=== PATIENT | female | born 1965 | race Caucasian/White ===

== ENCOUNTER 2023-11-21 12:34 | Emergency (ER) | payer OTHER, SELFPAY ==
[2023-11-21 12:38] VITALS: BP 180/101
--- NOTE | 2023-11-21 13:22 | ED.GENMED ---
History of Present Illness
General
Chief Complaint: Back Pain
Source: patient
Exam Limitations: none
Time Seen by Provider: 11/21/23 12:57
Nursing documentation reviewed up to this point in time: agreed with
History of Present Illness
History of Present Illness:
58-year-old female history of gastric sleeve presenting to the emergency department today with concerns of low back discomfort and spasm after reaching down to her toes and feeling a sharp pain to her back. Denies any numbness weakness change in
bowel or bladder function.
Review of Systems
Review of Systems
Allergies reviewed?: Yes
All Other Systems: ROS reviewed and negative except as documented in HPI and ROS
Phy Exam
Physical Exam
Physical Exam:
GENERAL: Alert , in no apparent distress
EYE: pupils equal and reactive
NECK: Supple, no significant adenopathy.
ENT: o/p clr, mmm.
CARDIAC: Regular rate and rhythm .
LUNGS: Clear breath sounds bilaterally, no acute respiratory distress, no wheezes/rales/rhonchi
ABDOMEN: Soft, without focal tenderness, no r/g, no cvat
NEUROLOGICAL: Alert and oriented, no focal neuro deficits
SKIN: Warm and dry, skin intact.
MUSCULOSKELETAL: No edema, well perfused.
PSYCH: Normal and appropriate interaction.
Course
Orders/Labs/Results
Orders:
Orders
11/21/23 13:10
Diazepam [Valium] 5 mg PO NOW STA
11/21/23 14:17
Dexamethasone [Decadron] 10 mg PO NOW STA
Diazepam [Valium] 5 mg PO NOW STA
Lumbar Spine, 2 or 3 View [CR Lumbar Spine 2 Or 3 Views] Urgent
Comment:
Reason For Exam: low back pain
11/21/23 16:01
Oxycodone [Roxicodone] 5 mg PO NOW STA
Vital Signs
Initial and Last Documented VS:
Initial Vital Signs
Temp Pulse Resp BP Pulse Ox
97.6 F 90 16 180/101 97
11/21/23 12:38 11/21/23 12:38 11/21/23 12:38 11/21/23 12:38 11/21/23 12:38
Last Documented Vital Signs
Temp Pulse Resp BP Pulse Ox
97.6 F 88 16 132/52 97
11/21/23 12:38 11/21/23 16:11 11/21/23 16:11 11/21/23 16:11 11/21/23 16:11
MDM/Problems Addressed
MDM/Problems Addressed:
58-year-old female presenting to the emergency department today with concerns of low back pain after reaching downward feeling a pulling sensation to her low back. She has noticed ongoing muscle spasm since over the past few hours. She took
Tylenol at home without relief. Here she denies any change in bowel or bladder function no numbness or weakness. Ambulating well. Patient given dose of Valium for muscle laxation. Patient with improvement of symptoms stable for discharge return
precautions given.
*Critical Care Note
Total Time (30-74mins, 75-104mins- exclusive of procedures): Not Applicable
ED Attending Note
-
Portions of this chart may have been created with voice recognition software.� Occasional wrong word or��sound alike� substitutions may have occurred due to the inherent limitations of voice recognition software.
Discharge Plan
Departure
Patient Disposition: Home (Routine Discharge)
Date of Disposition: 11/21/23
Time of Disposition: 16:02
Patient with high blood pressure during this ER visit?: Yes
Condition: Good
Covid-19: Not Applicable
Discharge Problem:
Low back pain
Instructions: Low Back Pain (DC), BLOOD PRESSURE
Prescriptions:
New
prednisone 20 mg tablet
40 mg PO DAILY 3 Days Qty: 6 0RF
tizanidine [Zanaflex] 4 mg capsule
4 mg PO HS PRN (Reason: muscle spasticity) Qty: 7 0RF
Referrals:
Wilian Zhang MD [Active] - Follow up in 5-7 days
Maliha Schofield CRNP [Family Provider] -
Activity Restrictions/Additional Instructions:
You came to the emergency department today with concerns of back discomfort. Here you are given medications help with symptoms and also had a normal x-ray without signs of acute injury. Please follow-up closely with the back doctor or your primary
care doctor. Return to the emergency department for any worsening, new or concerning symptoms.
Interventions
Interventions:
*Risk Screen - Suicide Last Done: 11/21/23 13:31
*General Assessment Last Done: 11/21/23 12:38
*Neglect/Abuse Screening Last Done: 11/21/23 12:38
ED- Fall Risk Assessment Last Done: 11/21/23 16:11
*ED COVID-19 Vaccine History Last Done: 11/21/23 12:38
*Nursing Disposition Last Done: 11/21/23 16:11
ED-Musculoskeletal Assessment Last Done: 11/21/23 13:31
Discharge Date and Time
Discharge Date/Time: 11/21/23 16:12
Print Language: FRENCH
[2023-11-21] MEDS: VALIUM 5 MG PO ×2 (13:24→14:25)
[2023-11-21] MEDS: DECADRON 10 MG PO (14:25)
[2023-11-21] MEDS: ROXICODONE 5 MG PO (16:07)
[2023-11-21 16:11] VITALS: BP 132/52
== END 2023-11-21 16:12 | disposition home or self-care (01) ==
LOC: EMR 12:34
PROVIDERS: EMERGENCY PHYSICIAN Emergency Medicine; FAMILY PHYSICIAN Nurse Practitioner
DX: M54.50 Low back pain, unspecified (principal)
CPT/HCPCS: 99283; 72100

== ENCOUNTER → 2023-12-27 10:18 | Outpatient (REF) | payer OTHER, SELFPAY | LOC: HWRAD 10:18 | PROVIDERS: ATTENDING PHYSICIAN Anesthesiology Pain Medicine; FAMILY PHYSICIAN Nurse Practitioner | DX: M25.551 Pain in right hip (principal) | CPT/HCPCS: 73502 ==

== ENCOUNTER → 2024-04-30 11:12 | Outpatient (REF) | payer OTHER, SELFPAY | LOC: HWRAD 11:12 | PROVIDERS: ATTENDING PHYSICIAN Hospitalist; REFERRING PHYSICIAN Anesthesiology Pain Medicine | DX: M06.9 Rheumatoid arthritis, unspecified (principal) | CPT/HCPCS: 73120; 73560; 73565 ==

== ENCOUNTER 2024-09-03 10:59 | Inpatient (IN) | payer OTHER, SELFPAY ==
[2024-09-02 23:08] VITALS: BMI 43.1
[2024-09-02 23:21] VITALS: BP 170/94
[2024-09-02] MEDS: ZOFRAN 4 MG IV ×2 (23:38→23:51)
[2024-09-02] MEDS: NSS 1000 IV (23:45)
[2024-09-02] MEDS: DILAUDID 1 MG IV (23:48)
--- NOTE | 2024-09-02 23:49 | ED.GENMED ---
History of Present Illness
General
Chief Complaint: Abdominal Pain
Source: patient and family
Exam Limitations: none
Time Seen by Provider: 09/02/24 23:35
Nursing documentation reviewed up to this point in time: agreed with
History of Present Illness
History of Present Illness:
59-year-old female 1 to 2 hours of nausea diarrhea right lower abdominal pain
No prior episodes of pain although she has had a gastric sleeve she is a gynecologic surgery breast surgery,
Past History
Past History
ED Past Surgical History: , Gynecological and Other (Gastric sleeve)
Social History
Tobacco: Non-smoker
Alcohol: None
Drug: None
Personal:
Living: with family
Employment: Employed
Review of Systems
Review of Systems
All Other Systems: Not applicable
Constitutional: Denies fever or fatigue
Respiratory: Denies cough or trouble breathing
Cardiac: Denies chest pain
ABD/GI: Reports abdominal pain, nausea, vomiting and diarrhea
: Denies flank pain
Neurological: Reports no symptoms
Endocrine: Reports no symptoms
Phy Exam
Physical Exam
Physical Exam:
Physical Exam
General: 59 female yelling out in pain
Neck: Dry membranes
Heart: s1/s2 regular rate and rhythm, no murmur. equal radial pulses.
Lungs: no acute respiratory distress. clear bilaterally
Abdomen: Tender in the right lower abdomen
Neuro: alert and oriented. no focal neurological deficits
Skin: no rash
Psychiatric: Anxious cooperative
Course
Orders/Labs/Results
Orders:
Orders
09/02/24 23:35
0.9% Sodium Chloride 1000 ml [Nss] 1,000 ml IV BOLUS
Ondansetron Injectable [Zofran] 4 mg IV NOW STA
09/02/24 23:36
Ondansetron Injectable [Zofran] 4 mg .ROUTE .STK-MED ONE
09/02/24 23:39
HYDROmorphone [Dilaudid] 1 mg IV NOW STA
09/02/24 23:44
Complete Blood Count/With Diff Urgent
09/02/24 23:47
Ondansetron Injectable [Zofran] 4 mg IV NOW STA
09/03/24
CT Abd/pelvis W Iv Cont Urgent
Reason For Exam: rlq pain
09/03/24 00:05
EKG [Electrocardiogram (*1)] Urgent
Reason for Study: Bradycardia / Tachycardia
EKG- Treatment ONCE
09/03/24 00:20
Comprehensive Metabolic Panel Urgent
Comment: REDRAW
Lipase Urgent
Comment: REDRAW
09/03/24 00:50
Diphenhydramine [Benadryl] 25 mg IV NOW STA
HYDROmorphone [Dilaudid] 1 mg IV NOW STA
09/03/24 02:25
Zosyn 3.375 grams IVPB NOW Piperacillin/Tazo 3.375 Gram [Zosyn] 3.375 gram in 50 ml IV NOW
Abnormal Lab Results
09/02/24 09/03/24
23:44 00:20
MCH 31.7 H pg
(27.0-31.0)
Absolute Neuts (auto) 8.4 H 10^3/uL
(1.4-6.5)
Absolute Monos (auto) 0.7 H 10^3/uL
(0.1-0.6)
Neutrophils % 79.8 H %
(42.2-75.2)
Lymphocytes % 12.3 L %
(20.5-51.1)
Chloride 109 H mmol/L
(98-107)
Glucose 147 H mg/dl
(70-99)
Calcium 10.4 H mg/dl
(8.4-10.2)
09/02/24 23:44
09/03/24 00:20
Vital Signs
Initial and Last Documented VS:
Initial Vital Signs
Temp Pulse Resp BP Pulse Ox
98.5 F 55 26 170/94 98
09/02/24 23:21 09/02/24 23:21 09/02/24 23:21 09/02/24 23:21 09/02/24 23:21
Last Documented Vital Signs
Temp Pulse Resp BP Pulse Ox
98.3 F 54 26 151/137 98
09/03/24 00:10 09/03/24 01:31 09/02/24 23:21 09/03/24 01:31 09/03/24 01:00
MDM/Problems Addressed
Differential Diagnosis Includes:
Enteritis colitis appendicitis renal colic obstruction doubt AAA
MDM/Problems Addressed:
Abdominal pain nausea vomit
Chronic conditions affecting care: Previous abdomnial surgery
Acute Exacerbation and/or Progression of Chronic Illness: Previous abdomnial surgery
*Radiology
Radiology exam reviewed: radiology read reviewed
*Pulse Oximetry
Patient hypoxic: no
*[employer] Interpretation
Rate: normal
Interpretation: normal
Heart Rate: 78
Rhythm: sinus
*Critical Care Note
Total Time (30-74mins, 75-104mins- exclusive of procedures): Not Applicable
Update Note
Update Note:
Update CT report reviewed with vision radiology positive appendicitis patient updated she was comfortable message sent to on-call general surgeon
ED Attending Note
-
Portions of this chart may have been created with voice recognition software.� Occasional wrong word or��sound alike� substitutions may have occurred due to the inherent limitations of voice recognition software.
Discharge Plan
Departure
Patient Disposition: Admit
Date of Disposition: 09/03/24
Time of Disposition: 02:25
Admit to: Med/Surg
Admit to doctor: General surgery
Presentation/result/management discussed w/ accepting MD/DO: gs
Condition: Good
Discharge Problem:
Acute appendicitis
Referrals:
NONE,* [Family Provider, Internal Medicine]
Interventions
Interventions:
*Risk Screen - Suicide Last Done: 09/02/24 23:21
*General Assessment Last Done: 09/02/24 23:57
*Neglect/Abuse Screening Last Done: 09/02/24 23:57
*ED- Fall Risk Assessment Last Done: 09/03/24 00:30
*ED COVID-19 Vaccine History Last Done: 09/02/24 23:57
GA-Cbgrcr-Gsxelfmneb Assessment Last Done: 09/03/24 00:30
Discharge Date and Time
Print Language: ICELANDIC
[2024-09-02 23:57] LABS: % Basophils 0.1 % (0-2); % Eosinophils 0.9 % (0-6); % Immature Granulocytes 0.4 % (0-0.5); % Lymphocytes 12.3 % (20.5-51.1); % Monocytes 6.5 % (1.7-9.3); % Neutrophils 79.8 % (42.2-75.2); Absolute Eosinophils 0.1 10^3/uL (0-0.7); Absolute Lymphocytes 1.3 10^3/uL (1.2-3.4); Absolute Monocytes 0.7 10^3/uL (0.1-0.6); Absolute Neutrophils 8.4 10^3/uL (1.4-6.5); Hematocrit 39.4 % (37.0-47.0); Mean Corp Hgb Conc. 35.5 g/dL (33.0-37.0); Mean Corpuscular Hgb 31.7 pg (27.0-31.0); Mean Corpuscular Volume 89.3 fL (81.0-99.0); Mean Platelet Volume 10.2 fL (7.4-10.4); Nucleated Red Blood Cells % 0 %; Platelet Count 210 10^3/uL (130-400); Red Blood Cell Count 4.41 10^6/uL (4.20-5.40); White Blood Cell Count 10.5 10^3/uL (4.8-10.8)
[2024-09-03] VITALS (17 sets, daily range): BP systolic 116–181; BP diastolic 47–137; BMI 44.4
[2024-09-03 00:48] LABS: ALT (SGPT) 22 U/L (0-35); AST (SGOT) 25 U/L (14-36); Alkaline Phosphatase 81 U/L (38-126); Blood Urea Nitrogen 16 mg/dl (7-17); Calcium 10.4 mg/dl (8.4-10.2); Carbon Dioxide 22 mmol/L (22-30); Chloride 109 mmol/L (98-107); Estimated Creatinine Clearance 118 ml/min; Glucose 147 mg/dl (70-99); Lipase 105 U/L (23-300); Potassium 4.1 mmol/L (3.5-5.1); Sodium 139 mmol/L (135-145); Total Bilirubin 1.3 mg/dl (0.2-1.3); Total Protein 7.9 g/dl (6.3-8.2); eGFR > 60.00
[2024-09-03] MEDS: BENADRYL 25 MG IV (00:54)
[2024-09-03] MEDS: DILAUDID 1 MG IV (00:55)
[2024-09-03] MEDS: ZOSYN 50 IV ×4 (02:42→19:56)
--- NOTE | 2024-09-03 03:07 | HPS.HSE ---
Addendum entered and electronically signed by Parker Sanford MD 09/03/24 08:29:
Patient seen and examined independently of admitting nurse practitioner. Agree with documented history and physical.
HPI: 59-year-old female who was in her usual baseline state of health until yesterday evening when she acutely developed abdominal pain which promptly localized to the right lower quadrant. Nausea, dry heaves but no vomiting. She has moved her
bowels a few times and a bit loose since her symptoms started. No previous episodes of pain like this in the past. Symptoms persisted this a.m. Associated anorexia as well.
Past abdominal surgical history notable for , gastric sleeve, abdominoplasty, prior umbilical hernia repair with mesh but mesh was removed at time of abdominoplasty per patient.
Medical history notable for asthma/anxiety/depression
AFVSS
Acutely ill and uncomfortable appearing. No acute distress however. Participatory for history taking. AAO x 3.
ABD: Soft, tenderness to palpation lower abdomen with voluntary guarding in the right lower quadrant
CT imaging with distended appendix and surrounding inflammatory changes. Probable fecalith. No significant free fluid. Cecum and terminal ileum unremarkable. No abscess.
Assessment/plan: 59-year-old female presenting with acute appendicitis. Reviewed with patient treatment options both operative and nonoperative with associated risk/benefits. Her preference is to proceed with appendectomy. Laparoscopic
appendectomy was reviewed in detail with the patient including the anticipated operative technique, potential operative findings and their management, benefits and potential risks such as but not limited to bleeding, infectious and wound related
complications, iatrogenic injury to surrounding viscera, conversion open. We discussed the typical postoperative recovery pending operative findings. Any of the patient's concerns or questions were fully addressed and informed consent was
confirmed.
Patient is on the OR schedule for today
N.p.o.
IV fluid hydration
Zosyn
As needed analgesics and antiemetics
SCDs/Lovenox for VTE prophylaxis
Original Note:
Family Physician
-
Family Physician: * NONE
Chief Complaint
-
Abdominal Pain
History of Present Illness
59-year-old female with a PMH of depression presents to the ER with complaints of nausea, dry heaving, diarrhea, and right lower abdominal pain 6/10 that was sharp in nature starting around 1999. She states that her last meal was around 1200. She
denies taking any medications at home to help with the pain/ nausea. She denies fevers, chills, urinary symptoms or palpations. She denies similar episodes like this before. Denies CP, SOB, or any other symptoms. Pt using PRN inhaler for seasonal
asthma.
Medical History
Past Medical History
Past Medical History: Reports Asthma (seasonal)
Past Surgical History: Reports , Gynocological and Other
Additional Past Surgical History:
L hip replacement, gastric sleeve
Social History
Tobacco: Former Smoker
Alcohol: Other (Pt drinks 2 glasses of white wine 4x a week )
Drug: None
Personal: Other
Living: Other
Employment: Other
Family History
Family History: Not pertinent
Allergies / Home Medications
Allergies reflects when Allergies were last updated in [employer].
Home Medications with original date entered in [employer]
Allergy/Medication List:
Allergies
Allergy/AdvReac Type Severity Reaction Status Date / Time
adhesive tape Allergy Rash Verified 09/02/24 23:20
Seasonal Allergy Nasal and Uncoded 09/02/24 23:20
eye
Home Medications
budesonide-formoterol HFA 160 mcg-4.5 mcg/actuation aerosol inhaler (Symbicort) 2 puff inhalation BID 09/03/24
cholecalciferol (vitamin D3) 50 mcg (2,000 unit) tablet (Vitamin D3) 50 mcg PO DAILY 09/03/24
escitalopram oxalate 20 mg tablet 20 mg PO DAILY 09/03/24
fluticasone propionate 50 mcg/actuation nasal spray,suspension 2 spray intranasal DAILY 09/03/24
naltrexone 4.5 mg capsule 4.5 mg PO 1XD 09/03/24
Review of Systems
-
History Source: Patient
A 12 point ROS was completed and negative except as noted: Yes
Abdomen/GI: Reports Abdominal Pain, Nausea and Diarrhea
Psych: Reports Anxiety
Physical Exam
Vital Signs
Vital Signs
Temp Pulse Resp BP Pulse Ox
98.3 F 52 21 155/75 92
09/03/24 00:10 09/03/24 02:15 09/03/24 02:15 09/03/24 02:00 09/03/24 02:15
Physical Exam
General: Pain
HEENT: NormoCephalic
Respiratory: Clear
Cardiac: S1/S2 and Regular Rhythm
GI: Soft and Tender
Neuro: Awake, Alert and Oriented
Psych: Anxious
Laboratory Results
-
09/02/24 23:44
09/03/24 00:20
Laboratory Results
Total Bilirubin 1.3 mg/dl (0.2-1.3) 09/03/24 00:20
AST 25 U/L (14-36) 09/03/24 00:20
ALT 22 U/L (0-35) 09/03/24 00:20
Alkaline Phosphatase 81 U/L (38-126) 09/03/24 00:20
Lipase 105 U/L (23-300) 09/03/24 00:20
Data Reviewed
-
CT Scan: Discussed with Patient
Impression/Plan
-
CT Abd/Pel w/ contrast:
Findings:
1) Acute appendicitis measuring up to 12mm, surrounding soft tissue stranding. No evidence of complications.
2) No bowel obstruction
Incidentals:
Diverticulosis w/o evidence of diverticulitis. Evidence of prior gastric surgery. Small hiatal hernia. Bibasilar atelectasis.
IMPRESSION:
Acute Appendicitis
PLAN:
Acute Appendicitis
Admit to general surgery Dr. Barber
NPO
cont. Zosyn and IVF
Pain management: Tylenol & Dilaudid
Nausea: Zofran PRN
Depression
Cont. Escitalopram oxalate
Asthma: seasonal
Cont. inhaler and Flonase
Pts med list lists Naltrexone. Pt refused to discuss med list, states it was already given to the nursing staff. PDMP checked only Tramadol listed 2x for a 7 day prescription.
Pt states she drinks 2 glasses of white wine 4x a week- denies any PMH of withdrawal- watch for s/s of withdrawal.
DVT prophylaxis: Lovenox
Full Code
[2024-09-03] MEDS: COMPAZINE 5 MG IV (04:23)
[2024-09-03] MEDS: FLUSH (NSS) 1 FLUSH IV (04:24)
[2024-09-03] MEDS: DILAUDID 0.5 MG IV ×5 (04:24→22:18)
[2024-09-03] MEDS: NSS 1000 IV ×2 (06:00→18:19)
--- NOTE | 2024-09-03 07:05 | PTCARENOTE ---
Patient received from ED via stretcher. Patient ambulated to bathroom independently. Patient drowsy from pain medication that she received in ED. Patient oriented to room safety and call sullivan. Call sullivan within reach. Will monitor.
[2024-09-03 07:12] LABS: Hematocrit 38.5 % (37.0-47.0); Mean Corp Hgb Conc. 33.8 g/dL (33.0-37.0); Mean Corpuscular Hgb 31.9 pg (27.0-31.0); Mean Corpuscular Volume 94.4 fL (81.0-99.0); Mean Platelet Volume 9.2 fL (7.4-10.4); Platelet Count 212 10^3/uL (130-400); Red Blood Cell Count 4.08 10^6/uL (4.20-5.40); Red Cell Dist. Width 13.9 % (11.5-14.5); White Blood Cell Count 12.1 10^3/uL (4.8-10.8)
[2024-09-03] MEDS: LEXAPRO 20 MG PO (07:43)
[2024-09-03] MEDS: SYMBICORT 160/4.5 MCG INHALER 2 PUFF INH ×2 (07:45→19:38)
[2024-09-03 08:01] LABS: Blood Urea Nitrogen 12 mg/dl (7-17); Calcium 9.4 mg/dl (8.4-10.2); Carbon Dioxide 26 mmol/L (22-30); Chloride 107 mmol/L (98-107); Estimated Creatinine Clearance 116 ml/min; Glucose 153 mg/dl (70-99); Potassium 4.6 mmol/L (3.5-5.1); Sodium 141 mmol/L (135-145); eGFR > 60.00
--- NOTE | 2024-09-03 08:30 | W.SUR.PREOP ---
Pre-Operative Surgical Note
-
I have examined this patient prior to the performance of the scheduled procedure.
The patient's condition is unchanged from the time of the current History and
Physical and the patient is able to undergo the scheduled procedure.
--- NOTE | 2024-09-03 11:01 | W.IMMPOSTOP ---
Addendum entered and electronically signed by Parker Sanford MD 09/03/24 11:14:
#[id number]
Original Note:
Surgical Immed Post Op Note
-
Primary Surgeon: Parker Sanford MD
Assisting Surgeon: Dayo AKBAR
Pre-op Diagnosis: Acute Appendicitis
Post-op Diagnosis: Perforated acute appendicitis without abscess; localized peritonitis
Procedure Performed: Laparoscopic appendectomy
Anesthesia Type: GETA +0.25% Marcaine
Specimen / Cultures: Appendix/none
Estimated Blood Loss: 6 mL
Complications: None immediate
Operative Findings: Walled off perforated appendicitis with gangrenous changes towards proximal appendix. Base of appendix/cecum without significant inflammatory changes/thickening. TI normal. Localized peritonitis. No abscess, no purulent
ascites.
Plan: Continue Zosyn postop and anticipate 7-day coverage of antibiotics postoperative (Augmentin on discharge)
Clear liquid diet and hold on dietary advancement until signs of GI recovery
Continue IV fluid hydration and supportive care
[2024-09-03] MEDS: TORADOL 15 MG IV (13:58)
--- NOTE | 2024-09-03 17:01 | CM ---
Alert awake oriented patient who
lives with her Enoch and dgt Eufemia in a 2 story home with 0 steps to enter and 10 steps to bed/bathroom. She is independent in activates of daily living.She does drive .Offered VN she declined need.
No VN in past . No SNF hx
Pharmacy [facility]
PCP Lillie Dawn
PLAN Home with no needs
[2024-09-03] MEDS: LOVENOX 40 MG SC (18:16)
[2024-09-03] MEDS: ANESTHETIC LOZENGE 1 LOZENGE PO (20:41)
[2024-09-04] MEDS: DILAUDID 0.5 MG IV ×3 (00:38→08:23)
[2024-09-04] MEDS: ZOSYN 50 IV ×4 (01:03→19:43)
[2024-09-04] MEDS: NSS 1000 IV ×3 (02:09→21:18)
[2024-09-04 04:45] VITALS: BP 129/57
[2024-09-04 07:15] VITALS: BP 123/62
[2024-09-04] MEDS: SYMBICORT 160/4.5 MCG INHALER 2 PUFF INH ×2 (07:55→18:16)
[2024-09-04] MEDS: TYLENOL 650 MG PO (08:15)
[2024-09-04] MEDS: LEXAPRO 20 MG PO (08:15)
--- NOTE | 2024-09-04 08:41 | W.PN.GS2 ---
Addendum entered and electronically signed by Parker Sanford MD 09/04/24 14:16:
BMI 44.4 obesity: likely secondary to excess calories
Addendum entered and electronically signed by Parker Sanford MD 09/04/24 10:13:
Patient seen and examined with surgical SOLAR SALES ASSESSOR in follow-up.
No flatus, no BM, no nausea but appetite poor
Appendicitis pain resolved, postoperative incisional pain controlled
AFVSS
ABD: Soft, tenderness palpation at incision sites, incisions with glue dressings
A/P: POD #1 status post laparoscopic appendectomy -perforated appendicitis, localized peritonitis but no abscess or purulence
Continue Zosyn
Hold on clear liquid diet until signs of postoperative GI recovery
Reduce IV fluid rate
Supportive care
Original Note:
Today's Communication / Plan
-
Clears
IV ABX
Assessment / Plan
-
59 yo female who presented with acute appendicitis now POD #1 lap appi with perforated appendicitis noted, localized peritonitis
AFVSS
Not yet passing flatus with distention concerning for developing ileus, not unexpected given intraoperative findings
No n/v
-Clears as tolerated
-IVF until good PO intake, decrease rate to 100ml/hr
-Analgesics prn, encouraged minimizing narcotics
-OOB/Ambulate
-Continue Zosyn postop and anticipate 7-day coverage of antibiotics postoperative (Augmentin on discharge)
Subjective Data
-
Date of Service: September 04, 2024
Patient seen and examined at bedside. Denies n/v. Not yet passing flatus. Pain overnight with distention.
Objective Data
-
Intake and Output
09/03/24 09/04/24 09/05/24
06:59 06:59 06:59
Intake Total 760 / 760
Balance 760 / 760
Intake:
Oral fluids 660 / 660
IV fluids (Total) 100 / 100
normosol 100 / 100
Other:
Number of approximated MODERATE 1 2
amounts of urine
Vital Signs
Temp Pulse Resp BP Pulse Ox
98.2 F 68 16 123/62 92
09/04/24 07:15 09/04/24 07:57 09/04/24 07:57 09/04/24 07:15 09/04/24 07:57
Lab Results
09/03/24 06:38
09/03/24 06:38
Calcium 9.4 mg/dl (8.4-10.2) 09/03/24 06:38
Total Bilirubin 1.3 mg/dl (0.2-1.3) 09/03/24 00:20
AST 25 U/L (14-36) 09/03/24 00:20
ALT 22 U/L (0-35) 09/03/24 00:20
Alkaline Phosphatase 81 U/L (38-126) 09/03/24 00:20
Total Protein 7.9 g/dl (6.3-8.2) 09/03/24 00:20
Albumin 5.0 g/dl (3.5-5.0) 09/03/24 00:20
Physical Exam
-
NAD
ABD soft, upper abdominal distention with tympany, mild tenderness throughout
Incisions well approximated with intact glue
[2024-09-04] MEDS: NSS IV (09:55)
--- NOTE | 2024-09-04 10:20 | PN.CDI ---
CDI
- -
CDI:
Physician Documentation Request
Admit Date: 09/03/24 10:59
Dear Doctor Juvenal,
Please review the following and provide your response in the progress notes.
Clinical Indicators:
Height: 5'10
Weight: 309 lbs
BMI: 44.4
Other Clinical Notes: Air Dispatcher note indicates morbidly obesity
If possible, please provide an associated diagnosis related to the abnormal BMI, such as:
BMI > or = to 40
Obesity:
Due to excess calories
Drug induced
Due to other cause
Severe or morbid obesity:
With alveolar hypoventilation (Obesity hypoventilation syndrome)
Without alveolar hypoventilation
Other (please specify)
Use of terms such as suspected, likely, concern for, or probable (associated with a specific diagnosis that is being evaluated, monitored, or treated as if it exists) are acceptable and can be coded in the inpatient setting, when documented at the
time of discharge.
Thank you,
Ankur Mata RN
CDI Specialist
Please use your independent medical judgment in providing your response.
[2024-09-04] MEDS: TORADOL 15 MG IV ×2 (12:30→19:45)
[2024-09-04 15:30] VITALS: BP 108/55
--- NOTE | 2024-09-04 16:56 | CM ---
Postop Lap Appendectomy.
Tolerating clears.
Pain med as needed.
Offered V she declined need.
Family will drive her home.
PLAN Home no needs
[2024-09-04] MEDS: LOVENOX 40 MG SC (17:02)
[2024-09-04] MEDS: ATIVAN 0.5 MG PO (22:14)
[2024-09-04 23:40] VITALS: BP 121/75
[2024-09-05] MEDS: ZOSYN 50 IV (01:57)
[2024-09-05 04:02] VITALS: BP 121/75
[2024-09-05 07:05] VITALS: BP 146/67
[2024-09-05] MEDS: SYMBICORT 160/4.5 MCG INHALER 2 PUFF INH (07:38)
[2024-09-05] MEDS: LEXAPRO 20 MG PO (08:28)
[2024-09-05] MEDS: NSS IV (09:35)
[2024-09-05] MEDS: ZOSYN IV (09:35)
[2024-09-05] MEDS: AUGMENTIN 875 MG/125 MG 1 TABLET PO (09:45)
--- NOTE | 2024-09-05 10:22 | CM ---
Patient seen at bedside
declines VN
IMM n/a
PLAN: home, no needs, declines VN
family to transport
[2024-09-05] MEDS: ROXICODONE 5 MG PO (10:47)
--- NOTE | 2024-09-05 11:17 | W.PN.GS2 ---
Today's Communication / Plan
-
Dispo planning
Assessment / Plan
-
59 yo female who presented with acute appendicitis now POD #2 lap appy with perforated appendicitis noted, localized peritonitis
Will advance to a regular diet
Hep-Lock IV fluids
Switch to oral pain medication as well as oral antibiotics d2/7
Anticipate discharge home later today if she is able to tolerate regular diet.
Time Spent
Total Time Spent with Patient (in minutes): 20
Subjective Data
-
Date of Service: September 05, 2024
Interval Events:
No acute events overnight. Slept well. Pain Controlled. Denies Nausea/Vomiting, +bowel function. Tolerating diet.
Objective Data
-
Intake and Output
09/04/24 09/05/24 09/06/24
06:59 06:59 06:59
Intake Total 760 / 760 1220 / 1220
Balance 760 / 760 1220 / 1220
Intake:
Oral fluids 660 / 660 1220 / 1220
IV fluids (Total) 100 / 100
normosol 100 / 100
Other:
Number of approximated MODERATE 2 4
amounts of urine
Number of approximated LARGE 2
amounts of urine
Vital Signs
Temp Pulse Resp BP Pulse Ox
99.5 F 71 16 146/67 94
09/05/24 08:57 09/05/24 07:41 09/05/24 07:41 09/05/24 07:05 09/05/24 07:41
Lab Results
09/03/24 06:38
09/03/24 06:38
Calcium 9.4 mg/dl (8.4-10.2) 09/03/24 06:38
Total Bilirubin 1.3 mg/dl (0.2-1.3) 09/03/24 00:20
AST 25 U/L (14-36) 09/03/24 00:20
ALT 22 U/L (0-35) 09/03/24 00:20
Alkaline Phosphatase 81 U/L (38-126) 09/03/24 00:20
Total Protein 7.9 g/dl (6.3-8.2) 09/03/24 00:20
Albumin 5.0 g/dl (3.5-5.0) 09/03/24 00:20
Physical Exam
-
GENERAL/NEURO: Awake, Alert, no distress
CHEST: Unlabored breathing on RA
ABDOMEN: Soft, obese, mildly tender, incisions clean dry and intact
Patient has a quintero catheter: No
Patient has a central line: No
--- NOTE | 2024-09-05 12:09 | W.DS.TRANS ---
Addendum entered and electronically signed by AIDA Little 09/05/24 15:21:
dictated #[id number]
Original Note:
DC Summary - Case Investigator
-
Discharge Instructions:
Discharge Diagnosis/Procedures Acute appendicitis; perforated. Laparoscopic
appendectomy
Diet As tolerated,Regular
Additional Diets Smaller meals initially after surgery as
abdominal bloating and distention may be common
for the first few days
Activity No strenuous activity
Additional Activity No lifting over 20 pounds for 3 to 4 weeks
postop
Driving Restrictions No driving 2 to 3 days or if using narcotics
Bathing Restrictions OK to Shower
Wound Care Glue at surgical sites typically peels off in 2
to 3 weeks
Instructions:
Stand-Alone Forms:
Changes to Home Medications: No
Discharge Medications:
DC Medications w/original date entered in [facility]
budesonide-formoterol HFA 160 mcg-4.5 mcg/actuation aerosol inhaler (Symbicort) 2 puff inhalation BID Lung/Breathing Issues 09/03/24
cholecalciferol (vitamin D3) 50 mcg (2,000 unit) tablet (Vitamin D3) 50 mcg PO DAILY Supplement 09/03/24
escitalopram oxalate 20 mg tablet 20 mg PO DAILY depression/anxiety 09/03/24
fluticasone propionate 50 mcg/actuation nasal spray,suspension 2 spray intranasal DAILY Allergies 09/03/24
naltrexone 4.5 mg capsule 4.5 mg PO 1XD 09/03/24
Held on 09/05/24. Instructions: Resume on 09/07/24. Hold in the short term while taking oxycodone, then ok to resume as previously directed
acetaminophen 325 mg tablet 650 mg (2 x 325 mg) PO Q4HPRN PRN mild pain #1 tab 09/05/24
oxycodone 5 mg tablet 5 mg PO Q4HPRN PRN breakthrough/severe pain #8 tabs 09/05/24
Home Medication Changes
Pending Results: No
[2024-09-05 12:44] VITALS: BP 155/67
== END 2024-09-05 13:22 | disposition home or self-care (01) | DRG 398 ==
LOC: 3 WEST ACU 10:59
PROVIDERS: ADMITTING PHYSICIAN Surgery; ATTENDING PHYSICIAN Surgery; EMERGENCY PHYSICIAN Emergency Medicine
PROC: 0DTJ4ZZ Resection of Appendix, Percutaneous Endoscopic Approach (ICD-10-PCS; 2024-09-03)
DX: K35.32 Acute appendicitis with perforation, localized peritonitis, and gangrene, without abscess (principal); K56.7 Ileus, unspecified; Z68.41 Body mass index [BMI] 40.0-44.9, adult; E66.09 Other obesity due to excess calories
CPT/HCPCS: 88304; 74177; 80048; 80053; 83690; 85025; 85027; 93005; 94640; 96374; 96375; 99285; Q9967